=== PATIENT | male | born 1975 | race Two or more races ===

== ENCOUNTER → 2017-08-08 | Emergency (ER) | payer OTHER ==
[~2017-08-08] VITALS: Ht 180.3 cm; Wt 102.1 kg
[~2017-08-08] MED LIST: KETO10TA2 PO; TAMS0.4C PO
== END | disposition home or self-care (01) ==
LOC: ER 02:45
DX: N20.1 Calculus of ureter (principal)

== ENCOUNTER 2018-10-17 14:15 | Emergency (ER) | payer OTHER ==
[~2018-10-17] VITALS: Ht 180.3 cm; Wt 102.1 kg
[2018-10-17] MEDS ORDERED: SKELAXIN800 MG PO (18:12)
[2018-10-17] MEDS ORDERED: KETO10TA2 PO (18:12)
[2018-10-17] MEDS ORDERED: PEPCID AC20 MG PO (18:12)
== END 2018-10-17 18:45 | disposition home or self-care (01) ==
LOC: ER 14:15
DX: S33.5XXA Sprain of ligaments of lumbar spine, initial encounter (principal); R10.12 Left upper quadrant pain; X50.0XXA Overexertion from strenuous movement or load, initial encounter; Y93.89 Activity, other specified; Y92.89 Other specified places as the place of occurrence of the external cause; Y99.8 Other external cause status

== ENCOUNTER 2018-10-18 11:52 | Emergency (ER) | payer OTHER ==
[~2018-10-18] VITALS: Ht 180.3 cm; Wt 102.1 kg
[~2018-10-18 11:52] MED LIST changes: +PEPCID AC20 MG PO; +SKELAXIN800 MG PO
== END 2018-10-18 18:31 | disposition home or self-care (01) ==
LOC: ER 11:52
DX: N21.1 Calculus in urethra (principal); N20.0 Calculus of kidney; R10.32 Left lower quadrant pain

== ENCOUNTER 2018-12-13 02:56 | Emergency (ER) | payer OTHER ==
[~2018-12-13] VITALS: Ht 180.3 cm; Wt 102.1 kg
== END 2018-12-13 12:27 | disposition home or self-care (01) ==
LOC: ER 02:56
DX: N20.0 Calculus of kidney (principal); N13.0 Hydronephrosis with ureteropelvic junction obstruction; R10.32 Left lower quadrant pain; R50.9 Fever, unspecified

== ENCOUNTER 2024-01-21 19:34 | Emergency (ER) | payer OTHER ==
[~2024-01-21] VITALS: Ht 180.3 cm; Wt 93.0 kg
[2024-01-21] MEDS ORDERED: KETOROLAC TROMETHAMINE 60 MG VIAL IM ONE (20:00)
[2024-01-21] MEDS ORDERED: DICLOFENAC SODI75 MG PO (20:53)
== END 2024-01-21 21:17 | disposition home or self-care (01) ==
LOC: ER 19:36
DX: M25.512 Pain in left shoulder (principal)

== ENCOUNTER 2024-08-15 20:23 | Emergency (ER) | payer OTHER ==
[~2024-08-15] VITALS: Ht 180.3 cm; Wt 97.5 kg
[~2024-08-15 20:23] MED LIST changes: +DICLOFENAC SODI75 MG PO
[2024-08-15] MEDS ORDERED: CEFTRIAXONE SODIUM 1,000 MG VIAL IM ONE (21:00)
[2024-08-15] MEDS ORDERED: TETANUS & DIPHTHERIA TOX,ADULT 0.5 ML VIAL IM ONE (21:00)
[2024-08-15] MEDS ORDERED: CEFTRIAXONE SODIUM 1,000 MG VIAL ONE (21:47)
[2024-08-15] MEDS ORDERED: DIPHTH,PERTUSS(ACELL),TET VAC 0.5 ML SYRINGE IM ONE ×2 (21:47→22:00)
[2024-08-15] MEDS ORDERED: LIDOCAINE HCL 1% 10ML VIAL ONE (21:48)
[2024-08-15] MEDS ORDERED: POVIDONE-IODINE 118 ML BOTT TOP ONE (21:49)
== END 2024-08-15 22:31 | disposition home or self-care (01) ==
LOC: ER 20:23
DX: S81.852A Open bite, left lower leg, initial encounter (principal); W54.0XXA Bitten by dog, initial encounter; Y93.89 Activity, other specified; Y92.89 Other specified places as the place of occurrence of the external cause; Y99.8 Other external cause status
CPT/HCPCS: 90471; 90714; J1670